=== PATIENT | male | born 1945 | race Caucasian/White ===

== ENCOUNTER → 2018-09-03 | Emergency (ER) | payer OTHER ==
[~2018-09-03] VITALS: Ht 177.8 cm; Wt 99.8 kg
[~2018-09-03] MED LIST: ASPIR 8181 MG; LIPITOR80 MG; TOPROL XL50 M1
== END | disposition left against medical advice (07) ==
LOC: ER 18:22
DX: Z53.20 Procedure and treatment not carried out because of patient's decision for unspecified reasons (principal)

== ENCOUNTER 2019-09-19 11:31 | Outpatient (CLI) | payer OTHER | END 2019-09-19 11:39 | disposition home or self-care (01) | LOC: RAD 11:31 | DX: M17.11 Unilateral primary osteoarthritis, right knee (principal); M16.11 Unilateral primary osteoarthritis, right hip ==

== ENCOUNTER 2020-11-15 08:13 | Outpatient (CLI) | payer OTHER | END 2020-11-15 08:15 | disposition home or self-care (01) | LOC: SONOGRAMA 08:13 → MAMO-SONO 08:45 | PROVIDERS: ATTEND Urology | DX: N39.41 Urge incontinence (principal); C61 Malignant neoplasm of prostate ==

== ENCOUNTER 2021-10-07 07:24 | Outpatient (CLI) | payer OTHER | END 2021-10-07 07:45 | disposition home or self-care (01) | LOC: NUCLEAR 07:24 | PROVIDERS: ATTEND Internal Medicine Cardiovascular Disease | DX: I25.119 Atherosclerotic heart disease of native coronary artery with unspecified angina pectoris (principal); E78.5 Hyperlipidemia, unspecified; E11.9 Type 2 diabetes mellitus without complications | CPT/HCPCS: 78452; 93017; A9500; J0153 ==

== ENCOUNTER 2022-03-07 08:05 | Outpatient (CLI) | payer OTHER | END 2022-03-07 08:30 | disposition home or self-care (01) | LOC: SONOGRAMA 08:05 | PROVIDERS: ATTEND Urology | DX: R31.1 Benign essential microscopic hematuria (principal); N39.41 Urge incontinence; C61 Malignant neoplasm of prostate ==

== ENCOUNTER 2022-10-07 11:41 | Outpatient (CLI) | payer OTHER | END 2022-10-07 11:48 | disposition home or self-care (01) | LOC: RAD 11:41 | PROVIDERS: ATTEND Obstetrics & Gynecology Obstetrics | DX: M99.01 Segmental and somatic dysfunction of cervical region (principal); M99.02 Segmental and somatic dysfunction of thoracic region; M99.03 Segmental and somatic dysfunction of lumbar region; M99.04 Segmental and somatic dysfunction of sacral region; M99.05 Segmental and somatic dysfunction of pelvic region ==

== ENCOUNTER 2023-03-11 08:10 | Outpatient (CLI) | payer OTHER | END 2023-03-11 08:17 | disposition home or self-care (01) | LOC: SONOGRAMA 08:10 | PROVIDERS: ATTEND Urology | DX: R31.1 Benign essential microscopic hematuria (principal); N39.41 Urge incontinence; C61 Malignant neoplasm of prostate ==

== ENCOUNTER 2025-05-30 09:11 | Outpatient (CLI) | payer OTHER | END 2025-05-30 09:15 | disposition home or self-care (01) | LOC: TOM 09:11 | DX: J32.8 Other chronic sinusitis (principal); J32.4 Chronic pansinusitis ==